=== PATIENT | female | born 1980 | race Two or more races ===

== ENCOUNTER → 2025-04-13 | Outpatient (CLI) | payer MEDICAID, SELFPAY ==
--- NOTE | 2025-04-13 09:30 | XR_ITS ---
Examination: Breast ultrasound complete, bilateral Date and time of exam: April 13, 2025 0935 hours INDICATIONS: Bilateral breast sonography March 26, 2017 right breast 10:00 nodule 13 mm 11:00 nodule 6 mm left breast 11:00 nodule 5 mm Technique: Real-time grayscale ultrasonographic imaging bilateral breasts, including all 4 quadrants as well as nipple retroareolar and axillary regions. Findings: Sonographic images right breast 9:00 nodule partially indistinct margins 15 x 11 mm 10:00 nodule partially indistinct margins 9 x 14 mm Sonographic images left breast 2:00 nodule 20 x 13 mm circumscribed 6:00 nodule lobular margins 8 x 8 mm 10:00 nodule circumscribed 12 x 8 mm 10:00 nodule lobular margins 12 x 9 mm Retroareolar nodule lobular margins 13 x 11 mm IMPRESSION: BI-RADS Category 4: Suspicious for malignancy Suspicious masses right breast 9 and 10:00 position, biopsy of both nodules is needed to exclude breast carcinoma Six-month left breast sonography follow-up strongly recommended
--- NOTE | 2025-04-13 10:30 | XR_ITS ---
Examination: Diagnostic digital mammography, bilateral Computer aided detection 3-D breast Tomosynthesis, bilateral Date and time of exam: April 13, 2025 1005 hours INDICATIONS: Patient states palpable lump left breast note is beginning 2 weeks ago Compared to mammograms dating to 08/17/2016 Technique: Nonmagnified MLO, CC views of the breasts to been obtained, reconstructed from 3-D Tomosynthesis images. R2 computer aided detection program utilized for evaluation of suspicious masses and/or abnormal calcifications. 3-D Tomosynthesis images obtained. Findings: The breasts are heterogeneously dense, which may obscure small masses Benign calcifications Breast biopsy marker upper right breast 2:00 circumscribed nodule left breast, please see the left breast sonogram report today 9:00 nodule right breast 11 mm partially indistinct margins Impression: BI-RADS Category 4: Suspicious for malignancy Suspicious nodule 9:00 position right breast Please see the right breast sonogram report today indicating both 9:00 and 10:00 BI-RADS 4 suspicious masses right breast which require biopsy under ultrasound guidance.
== END | disposition home or self-care (01) ==
PROVIDERS: PCP Obstetrics & Gynecology; Referring Provider Obstetrics & Gynecology; Visit Provider Obstetrics & Gynecology
DX: R92.343 Mammographic extreme density, bilateral breasts (principal); N63.15 Unspecified lump in the right breast, overlapping quadrants; N63.11 Unspecified lump in the right breast, upper outer quadrant
CPT/HCPCS: 76641; 77062; 77066; G0279

== ENCOUNTER → 2025-05-11 | Outpatient (CLI) | payer MEDICAID, SELFPAY ==
[2025-05-11 12:48] LABS: Basophils % (Auto) 1 % (0-2.5); Eosinophils # (Auto) 0.1 Thou/mm3 (0.0-0.5); Eosinophils % (Auto) 2 % (0-10); Hematocrit 32.7 % (36.0-46.0); Hemoglobin 9.4 g/dL (12.0-16.0); Immature Granulocytes % (Auto) 0 % (0-0); Immature Granulocytes Auto 0.02 Thou/mm3 (0.00-0.00); Lymphocytes # (Auto) 1.9 Thou/mm3 (1.0-4.8); Lymphocytes % (Auto) 29 % (10-50); Mean Corpuscular HGB Conc 28.7 g/dl (31.0-37.0); Mean Corpuscular Hemoglobin 19.4 pg (25.0-35.0); Mean Corpuscular Volume 68 fL (80-100); Monocytes # (Auto) 0.4 Thou/mm3 (0.0-0.8); Monocytes % (Auto) 7 % (0-12); Neutrophils # (Auto) 4.1 Thou/mm3 (1.8-7.7); Neutrophils % (Auto) 62 % (37-80); Nucleated Red Blood Cell % 0 /100 WBC (0); Platelet Count 344 Thou/mm3 (140-440); Red Blood Count 4.84 Miln/mm3 (4.00-5.20); White Blood Count 6.7 Thou/mm3 (3.6-11.0)
[2025-05-11 12:50] LABS: INR 0.9 (0.9-1.3); Prothrombin Time 10.3 Seconds (9.0-12.2)
[2025-05-11 13:06] LABS: HCG,Qualitative Serum Negative
== END | disposition home or self-care (01) ==
LOC: SLAB 05-13 07:50
PROVIDERS: Radiology Diagnostic Radiology; PCP Nurse Practitioner Family; Referring Provider Nurse Practitioner Family; Visit Provider Nurse Practitioner Family
DX: N63.10 Unspecified lump in the right breast, unspecified quadrant (principal)
CPT/HCPCS: 36415; 84703; 85025; 85610; 85730